=== PATIENT | female | born 1945 | race Caucasian/White ===

== ENCOUNTER 2022-04-19 05:52 | Emergency (ER) | payer OTHER ==
[~2022-04-19 05:52] MED LIST: ASPIRIN CHEWABL81 MG PO; CLARITIN10 MG PO; COQ-10100 MG PO; CRESTOR40 M1 PO; PROTONIX 40MG T40 MG PO; SYNTHROID75 MCG PO
[2022-04-19 06:18] LABS: BASOPHIL 0.3 % (0-2); EOSINOPHIL 0.4 % (0-7); HCT 40.9 % (37.0-47.0); HGB 13.4 g/dl (12.5-16.0); LYMPHOCYTE 25.9 % (15-48); MCH 29.5 pg (25.0-31.0); MCHC 32.8 g/dL (32.0-36.0); MCV 90.1 fL (78.0-100.0); MONOCYTE 6.6 % (0-12); MPV 9.9 fL (6.0-9.5); NEUTROPHIL 66.4 % (41-80); NRBC 0; PLT 156 K/uL (150-400); RBC 4.54 M/uL (4.20-5.40); RDW 12.6 % (11.5-14.0); WBC 7.1 K/uL (4.0-10.5)
[2022-04-19 06:41] LABS: ALBUMIN 3.8 g/dL (3.4-5.0); BILIRUBIN - TOTAL 0.7 mg/dL (0.2-1.0); CREATININE 0.74 mg/dL (0.51-0.95); GLOBULIN (CALCULATION) 3.4 g/dL; POTASSIUM 3.4 mmol/L (3.5-5.1); TOTAL PROTEIN 7.2 g/dL (6.4-8.2)
[2022-04-19 07:39] LABS: BILIRUBIN NEGATIVE (NEGATIVE); BLOOD NEGATIVE Ery/uL (NEGATIVE); CLARITY CLEAR (CLEAR); COLOR YELLOW (YELLOW); GLUCOSE (U) NORMAL (NORMAL); LEUKOCYTES NEGATIVE Leu/uL (NEGATIVE); NITRITE NEGATIVE (NEGATIVE); PROTEIN NEGATIVE (NEGATIVE); UROBILINOGEN 0.2 mg/dL (0.2-1.0); pH 7.5 (5.0-9.0)
[2022-04-19] MEDS ORDERED: CARAFATE S500 MG/TSP PO (10:15)
== END 2022-04-19 10:30 | disposition home or self-care (01) ==
LOC: FER 05:52
PROVIDERS: Emergency Medicine
DX: K21.9 Gastro-esophageal reflux disease without esophagitis (principal); R07.89 Other chest pain; I10 Essential (primary) hypertension; E03.9 Hypothyroidism, unspecified; E78.5 Hyperlipidemia, unspecified; Z79.82 Long term (current) use of aspirin; Z79.899 Other long term (current) drug therapy
CPT/HCPCS: 36415; 71045; 80053; 81003; 83690; 83880; 84484; 85025; 85379; 93005; J2270; J2405